=== PATIENT | female | born 1985 | race Caucasian/White ===

== ENCOUNTER 2017-08-13 23:34 | Emergency (ER) | payer SELFPAY ==
[2017-08-14] MEDS: KETOROLAC 60 MG/2 ML INJ. IM (00:38)
== END 2017-08-14 01:30 | disposition home or self-care (01) ==
LOC: ER 08-14 01:30
DX: R51 Headache (principal); H53.8 Other visual disturbances; Z87.442 Personal history of urinary calculi
CPT/HCPCS: 70450; 96372; 99284-25; J1885